=== PATIENT | male | born 1985 | race Caucasian/White ===

== ENCOUNTER 2022-05-19 17:24 | Inpatient (IN) | payer MEDICAID ==
[~2022-05-19] VITALS: Ht 180.3 cm; Wt 106.6 kg
[2022-05-19 19:19] LABS: HEMOGLOBIN 15.5 gm/dl (14.0-17.5); RED BLOOD COUNT 4.95 M/UL (4.20-5.50); WHITE BLOOD COUNT 9.6 K/UL (4.5-11.0)
[2022-05-19 19:22] LABS: BUN/CREATININE RATIO 14 (0-10)
[2022-05-20 07:53] LABS: RED BLOOD COUNT 4.47 M/UL (4.20-5.50); WHITE BLOOD COUNT 8.8 K/UL (4.5-11.0)
[2022-05-20 08:08] LABS: BUN/CREATININE RATIO 14 (0-10)
[2022-05-21 07:13] LABS: HEMOGLOBIN 14.3 gm/dl (14.0-17.5); RED BLOOD COUNT 4.53 M/UL (4.20-5.50); WHITE BLOOD COUNT 7.6 K/UL (4.5-11.0)
[2022-05-21 07:16] LABS: BUN/CREATININE RATIO 14 (0-10)
[2022-05-22 06:44] LABS: HEMOGLOBIN 14.7 gm/dl (14.0-17.5); RED BLOOD COUNT 4.65 M/UL (4.20-5.50)
[2022-05-22 06:46] LABS: WHITE BLOOD COUNT 11.5 K/UL (4.5-11.0)
[2022-05-22 07:05] LABS: BUN/CREATININE RATIO 19 (0-10)
[2022-05-23 05:58] LABS: BUN/CREATININE RATIO 18 (0-10)
[2022-05-23 09:16] LABS: HEMOGLOBIN 14.1 gm/dl (14.0-17.5); RED BLOOD COUNT 4.53 M/UL (4.20-5.50); WHITE BLOOD COUNT 7.3 K/UL (4.5-11.0)
[2022-05-23] MEDS ORDERED: HYDROCODON-ACE1 EAC4 PO (15:12)
[2022-05-23] MEDS ORDERED: DAPTOMYCIN350 MG IV (15:12)
[2022-05-23] MEDS ORDERED: PROTONIX 40 MG40 M1 PO (15:12)
[2022-05-23] MEDS ORDERED: CIPRO500 MG PO (15:12)
[2022-05-23] MEDS ORDERED: HYSEPT473 ML TOP (15:12)
== END 2022-05-23 17:41 | disposition home or self-care (01) | DRG 496 ==
LOC: ER1 17:24 → MED SURG 4 21:49 → CDU 21:49 → MED SURG 4 23:00
PROVIDERS: Emergency Medicine; Internal Medicine; Physician Assistant; Podiatrist Foot & Ankle Surgery; ADMIT Internal Medicine
PROC: 0QDQ0ZZ Extraction of Right Toe Phalanx, Open Approach (ICD-10-PCS; 2022-05-21)
PROC: 0Q9Q0ZZ Drainage of Right Toe Phalanx, Open Approach (ICD-10-PCS; principal; 2022-05-21 14:59)
DX: M86.8X6 Other osteomyelitis, lower leg (principal); L02.611 Cutaneous abscess of right foot; L03.115 Cellulitis of right lower limb; Z20.822 Contact with and (suspected) exposure to COVID-19; Z88.0 Allergy status to penicillin; Z83.3 Family history of diabetes mellitus
CPT/HCPCS: 36415; 73630; 73718; 80048; 80053; 80202; 83605; 83735; 85025; 85652; 86140; 87040; 87070; 87205; 96365; 96372; 96375; 96376; 99285; G0378; J1100; J1170; J1650; J1885; J1956; J2001; J2250; J2270; J2405; J2704; J2795; J3010; J3370; J7070

== ENCOUNTER → 2022-05-24 | Outpatient (CLI) | payer MEDICAID ==
[~2022-05-24] VITALS: Ht 177.8 cm; Wt 106.6 kg
[~2022-05-24] MED LIST: CIPRO500 MG PO; DAPTOMYCIN350 MG IV; HYDROCODON-ACE1 EAC4 PO; HYSEPT473 ML TOP; PROTONIX 40 MG40 M1 PO
== END ==
LOC: OPSV 07:00 → EROP 10:24
DX: Z53.9 Procedure and treatment not carried out, unspecified reason (principal)
CPT/HCPCS: 96365; J0878

== ENCOUNTER → 2022-05-25 | Outpatient (CLI) | payer MEDICAID ==
[~2022-05-25] VITALS: Ht 177.8 cm; Wt 106.6 kg
== END ==
LOC: EROP 11:15
DX: Z53.9 Procedure and treatment not carried out, unspecified reason (principal)
CPT/HCPCS: 96365; J0878

== ENCOUNTER → 2022-05-26 | Outpatient (CLI) | payer MEDICAID ==
[~2022-05-26] VITALS: Ht 177.8 cm; Wt 106.6 kg
== END ==
LOC: OPSV 11:00
DX: Z53.9 Procedure and treatment not carried out, unspecified reason (principal)
CPT/HCPCS: 96365; J0878

== ENCOUNTER → 2022-05-27 | Outpatient (CLI) | payer MEDICAID | LOC: OPSV 11:00 | DX: L03.90 Cellulitis, unspecified (principal); S81.809A Unspecified open wound, unspecified lower leg, initial encounter | CPT/HCPCS: 96365; J0878 ==

== ENCOUNTER → 2022-05-28 | Outpatient (CLI) | payer MEDICAID | LOC: OPSV 11:00 | DX: L03.031 Cellulitis of right toe (principal); S81.809A Unspecified open wound, unspecified lower leg, initial encounter | CPT/HCPCS: 96365; J0878 ==

== ENCOUNTER → 2022-05-29 | Outpatient (CLI) | payer MEDICAID ==
[~2022-05-29] VITALS: Ht 177.8 cm; Wt 106.6 kg
[2022-05-29 11:50] LABS: HEMOGLOBIN 15.1 gm/dl (14.0-17.5); RED BLOOD COUNT 4.84 M/UL (4.20-5.50)
[2022-05-29 12:22] LABS: BUN/CREATININE RATIO 18 (0-10)
== END ==
LOC: OPSV 11:00
PROVIDERS: Internal Medicine Infectious Disease
DX: M86.9 Osteomyelitis, unspecified (principal)
CPT/HCPCS: 80053; 85025; 85652; 86140; 96365; J0878

== ENCOUNTER → 2022-05-30 | Outpatient (CLI) | payer MEDICAID ==
[~2022-05-30] VITALS: Ht 177.8 cm; Wt 106.6 kg
== END ==
LOC: OPSV 07:00
DX: S92.911A Unspecified fracture of right toe(s), initial encounter for closed fracture (principal); L03.90 Cellulitis, unspecified
CPT/HCPCS: 96365; J0878

== ENCOUNTER → 2022-06-01 | Outpatient (CLI) | payer MEDICAID ==
[~2022-06-01] VITALS: Ht 177.8 cm; Wt 106.6 kg
== END ==
LOC: OPSV 05-31 06:27
DX: Z53.9 Procedure and treatment not carried out, unspecified reason (principal)
CPT/HCPCS: 96365; J0878

== ENCOUNTER → 2022-06-01 | Outpatient (CLI) | payer MEDICAID | LOC: OPSV 06:20 | DX: Z53.9 Procedure and treatment not carried out, unspecified reason (principal) | CPT/HCPCS: 96365; J0878 ==

== ENCOUNTER → 2022-06-02 | Outpatient (CLI) | payer MEDICAID ==
[~2022-06-02] VITALS: Ht 177.8 cm; Wt 106.6 kg
== END ==
LOC: OPSV 06:25
DX: Z53.9 Procedure and treatment not carried out, unspecified reason (principal)
CPT/HCPCS: 96365; J0878

== ENCOUNTER → 2022-06-03 | Outpatient (CLI) | payer MEDICAID ==
[~2022-06-03] VITALS: Ht 177.8 cm; Wt 106.6 kg
== END ==
LOC: OPSV 10:55
DX: Z53.9 Procedure and treatment not carried out, unspecified reason (principal)
CPT/HCPCS: 96365; J0878

== ENCOUNTER → 2022-06-04 | Outpatient (CLI) | payer MEDICAID ==
[~2022-06-04] VITALS: Ht 177.8 cm; Wt 106.6 kg
== END ==
LOC: OPSV 08:17
DX: Z53.9 Procedure and treatment not carried out, unspecified reason (principal)
CPT/HCPCS: 96365; J0878

== ENCOUNTER → 2022-06-05 | Outpatient (CLI) | payer MEDICAID | LOC: OPSV 08:36 | DX: Z53.9 Procedure and treatment not carried out, unspecified reason (principal) | CPT/HCPCS: 96365; J0878 ==

== ENCOUNTER → 2022-06-06 | Outpatient (CLI) | payer SELFPAY ==
[~2022-06-06] VITALS: Ht 177.8 cm; Wt 106.6 kg
== END ==
LOC: OPSV 08:23
DX: S81.809A Unspecified open wound, unspecified lower leg, initial encounter (principal); L03.90 Cellulitis, unspecified
CPT/HCPCS: 96365; J0878

== ENCOUNTER → 2022-06-07 | Outpatient (CLI) | payer SELFPAY ==
[~2022-06-07] VITALS: Ht 177.8 cm; Wt 106.6 kg
== END ==
LOC: OPSV 05:56
DX: Z53.9 Procedure and treatment not carried out, unspecified reason (principal)
CPT/HCPCS: 96365; J0878

== ENCOUNTER → 2022-06-08 | Outpatient (CLI) | payer SELFPAY ==
[~2022-06-08] VITALS: Ht 177.8 cm; Wt 106.6 kg
== END ==
LOC: OPSV 05:41
DX: Z53.9 Procedure and treatment not carried out, unspecified reason (principal)
CPT/HCPCS: 96365; J0878

== ENCOUNTER → 2022-06-09 | Outpatient (CLI) | payer SELFPAY ==
[~2022-06-09] VITALS: Ht 177.8 cm; Wt 106.6 kg
== END ==
LOC: OPSV 08:20
DX: L03.031 Cellulitis of right toe (principal); S81.809A Unspecified open wound, unspecified lower leg, initial encounter
CPT/HCPCS: 96365; J0878

== ENCOUNTER → 2022-06-10 | Outpatient (CLI) | payer SELFPAY ==
[~2022-06-10] VITALS: Ht 177.8 cm; Wt 106.6 kg
== END ==
LOC: OPSV 08:47
DX: L03.031 Cellulitis of right toe (principal); S81.809A Unspecified open wound, unspecified lower leg, initial encounter
CPT/HCPCS: 96365; J0878

== ENCOUNTER → 2022-06-11 | Outpatient (CLI) | payer MEDICAID ==
[~2022-06-11] VITALS: Ht 177.8 cm; Wt 106.6 kg
== END ==
LOC: OPSV 08:37
DX: L03.031 Cellulitis of right toe (principal); S81.809A Unspecified open wound, unspecified lower leg, initial encounter
CPT/HCPCS: 96365; J0878

== ENCOUNTER → 2022-06-12 | Outpatient (CLI) | payer MEDICAID ==
[~2022-06-12] VITALS: Ht 177.8 cm; Wt 106.6 kg
== END ==
LOC: OPSV 07:52
DX: L03.031 Cellulitis of right toe (principal); S81.809A Unspecified open wound, unspecified lower leg, initial encounter
CPT/HCPCS: 96365; J0878

== ENCOUNTER → 2022-06-13 | Outpatient (CLI) | payer MEDICAID ==
[~2022-06-13] VITALS: Ht 177.8 cm; Wt 106.6 kg
== END ==
LOC: OPSV 08:07
DX: L03.031 Cellulitis of right toe (principal); S81.809A Unspecified open wound, unspecified lower leg, initial encounter
CPT/HCPCS: 96365; J0878

== ENCOUNTER → 2022-06-14 | Outpatient (CLI) | payer MEDICAID ==
[~2022-06-14] VITALS: Ht 177.8 cm; Wt 106.6 kg
== END ==
LOC: OPSV 07:00 → EROP 11:18
DX: S81.809A Unspecified open wound, unspecified lower leg, initial encounter (principal)
CPT/HCPCS: 96365; J0878

== ENCOUNTER → 2022-06-15 | Outpatient (CLI) | payer MEDICAID ==
[~2022-06-15] VITALS: Ht 177.8 cm; Wt 106.6 kg
== END ==
LOC: OPSV 07:00 → EROP 07:00
DX: Z53.9 Procedure and treatment not carried out, unspecified reason (principal)
CPT/HCPCS: 96365; J0878

== ENCOUNTER → 2022-06-16 | Outpatient (CLI) | payer MEDICAID ==
[~2022-06-16] VITALS: Ht 177.8 cm; Wt 106.6 kg
== END ==
LOC: OPSV 10:27
DX: S81.809A Unspecified open wound, unspecified lower leg, initial encounter (principal)
CPT/HCPCS: 96365; J0878

== ENCOUNTER → 2022-06-17 | Outpatient (CLI) | payer SELFPAY ==
[~2022-06-17] VITALS: Ht 177.8 cm; Wt 106.6 kg
== END ==
LOC: OPSV 08:10
DX: L03.031 Cellulitis of right toe (principal); S81.809A Unspecified open wound, unspecified lower leg, initial encounter
CPT/HCPCS: 96365; J0878

== ENCOUNTER → 2022-06-18 | Outpatient (CLI) | payer SELFPAY ==
[~2022-06-18] VITALS: Ht 177.8 cm; Wt 106.6 kg
== END ==
LOC: OPSV 08:15
DX: L03.031 Cellulitis of right toe (principal); S81.809A Unspecified open wound, unspecified lower leg, initial encounter
CPT/HCPCS: 96365; J0878

== ENCOUNTER → 2022-06-19 | Outpatient (CLI) | payer SELFPAY | LOC: OPSV 08:12 | DX: L03.031 Cellulitis of right toe (principal) | CPT/HCPCS: 96365; J0878 ==

== ENCOUNTER → 2022-06-20 | Outpatient (CLI) | payer SELFPAY ==
[~2022-06-20] VITALS: Ht 177.8 cm; Wt 106.6 kg
== END ==
LOC: OPSV 08:07
DX: L03.031 Cellulitis of right toe (principal); S81.809A Unspecified open wound, unspecified lower leg, initial encounter
CPT/HCPCS: 96365; J0878